=== PATIENT | female | born 1995 | race Caucasian/White ===

== ENCOUNTER 2020-11-02 16:48 | Emergency (ER) | payer OTHER ==
[~2020-11-02] VITALS: Ht 152.4 cm; Wt 71.2 kg
[2020-11-02 17:00] VITALS: Ht 152.4 cm; Wt 71.2 kg
[2020-11-02 17:54] LABS: RED CELL DISTRIBUTION WIDTH 13.4 % (12.3-17.7)
[2020-11-02 17:55] LABS: BASOPHIL % 0.2 % (0.2-1.3); PLATELET COUNT 340 x10^3mcL (179-408)
[2020-11-02 18:00] LABS: CALCIUM 9.3 mg/dL (8.5-10.1); CARBON DIOXIDE 27.6 mmol/L (21-32); CHLORIDE SERUM 97 mmol/L (98-107); CREATININE SERUM 0.6 mg/dL (0.6-1.0); GFR1 > 60 mL/min; GLUCOSE SERUM 87 mg/dL (74-106); POTASSIUM SERUM 3.7 mmol/L (3.5-5.1); SODIUM SERUM 135 mmol/L (136-145)
[2020-11-02 18:05] LABS: ALBUMIN 3.8 g/dL (3.4-5.0); ALKALINE PHOSPHATASE 82 U/L (46-116); ALT/SGPT 38 U/L (14-59); AST/SGOT 18 U/L (15-37); BILIRUBIN TOTAL 0.4 mg/dL (0.20-1.00); TOTAL PROTEIN, SERUM 7.9 g/dL (6.4-8.2)
[2020-11-02] MEDS ORDERED: ONDANSETRON4 M3 PO (19:15)
[2020-11-02 21:49] VITALS: BP 110/69
== END 2020-11-02 21:49 | disposition home or self-care (01) ==
LOC: ED 16:48
PROVIDERS: Student in an Organized Health Care Education/Training Program
DX: O21.9 Vomiting of pregnancy, unspecified (principal); Z3A.08 8 weeks gestation of pregnancy
CPT/HCPCS: J2405; J7030